=== PATIENT | male | born 1935 | race Caucasian/White ===

== ENCOUNTER 2016-08-27 06:43 | Inpatient (IN) | payer OTHER ==
[~2016-08-27] VITALS: Ht 193 cm; Wt 91.5 kg
[2016-08-27 07:21] LABS: ADD MIUA? YES; BILIRUBIN NEGATIVE; BLOOD MODERATE; COLOR YELLOW ((YELLOW)); GLUCOSE (STRIP) NEGATIVE; KETONES 5; LEUKOCYTES MODERATE; NITRITE POSITIVE; PROTEIN (STRIP) 30; SPECIFIC GRAVITY 1.013 (1.000-1.030); UROBILINOGEN 0.2 MG/DL (0.2-1.0)
[2016-08-27 07:22] LABS: EOSINOPHIL (%) 0.1 % (0-5); HEMATOCRIT 46.3 % (38.0-50.0); IMMATURE GRANULOCYTE (%) 0.5 % (0.0-0.7); IMMATURE GRANULOCYTE COUNT 0.1 K/uL; INSTRUMENT ABS NEUTROPHIL CT 12.2 K/uL; LYMPHOCYTE COUNT 0.3 K/uL (1.0-2.8); MCH 31.5 PG (29.0-34.0); MCHC 33.9 G/DL (30.0-36.0); MCV 92.8 FL (86-99); MEAN PLAT.VOLUME 10.2 uM^3 (9.0-12.4); MONOCYTE (%) 4.1 % (3-12); MONOCYTE COUNT 0.5 K/uL (0-0.8); NEUTROPHIL (%) 93.2 % (45-76); NEUTROPHIL COUNT 12.2 K/uL (1.8-6.4); PLATELET COUNT 159 K/uL (156-360); RBC DIS.WIDTH-CV 12.9 % (11.8-14.6); RBC DIS.WIDTH-SD 43.8 % (39-53); RED BLOOD COUNT 4.99 M/uL (4.00-5.50); WHITE BLOOD COUNT 13.1 K/uL (4.1-10.2)
[2016-08-27 07:37] LABS: BACTERIA 1+ /HPF; EPITHELIAL CELLS NONE SEEN /HPF; HYALINE CASTS 0-5 /LPF; MUCUS TRACE /LPF; UCUL ADDED? YES; WHITE BLOOD CELLS TNTC /HPF (0-5)
[2016-08-27 07:59] LABS: ANION GAP 11 MEQ/L (2-14); CHLORIDE 107 MEQ/L (99-109); POTASSIUM 3.6 MEQ/L (3.7-5.4); SAMPLE HEMOLYSIS CHECK 0; SAMPLE ICTERIC CHECK 0; SAMPLE LIPEMIA CHECK 0; SODIUM 141 MEQ/L (136-147); TOTAL BILIRUBIN 1.4 MG/DL (0.0-1.0)
[2016-08-27] MEDS ORDERED: ENTACAPONE200 MG PO (08:01)
[2016-08-27 08:04] LABS: ALKALINE PHOSPHATASE 41 IU/L (3-129); GFR ESTIMATE (CALCULATED) > 59 mL/min/; GLUCOSE 102 mg/dL (70-99); UREA NITROGEN (BUN) 18 mg/dL (9-23)
[2016-08-27 08:07] LABS: TROP-I INTERPRETATION NEGATIVE; TROPONIN-I 0.12 ng/mL (0.0-0.30)
[2016-08-27 11:05] VITALS: BP 137/77
[2016-08-27] MEDS ORDERED: ONE DAILY FOR1 EAC2 PO (14:29)
[2016-08-27] MEDS ORDERED: VITAMIN D-32000 UNI2 PO (14:29)
[2016-08-27] MEDS ORDERED: ECOTRIN325 MG PO (14:31)
[2016-08-27] MEDS ORDERED: SINEMET CR 50-1 EACH PO (14:32)
[2016-08-27] MEDS ORDERED: SINEMET 25-1001 EACH PO (14:34)
[2016-08-27] MEDS ORDERED: ARTANE2 MG PO (14:37)
[2016-08-27] MEDS ORDERED: ASCORBIC ACID500 M3 PO (14:38)
[2016-08-27] MEDS ORDERED: SAW PALMETTO160 MG PO (14:42)
[2016-08-27 15:19] VITALS: BP 141/83
[2016-08-27 20:03] VITALS: BP 166/91
[2016-08-28] VITALS (7 sets, daily range): BP systolic 120–166; BP diastolic 58–91
[2016-08-28 05:57] LABS: MCH 32.1 PG (29.0-34.0); MCHC 34.2 G/DL (30.0-36.0); MCV 93.9 FL (86-99); MEAN PLAT.VOLUME 10.3 uM^3 (9.0-12.4); PLATELET COUNT 130 K/uL (156-360); RBC DIS.WIDTH-CV 12.9 % (11.8-14.6); RBC DIS.WIDTH-SD 44.2 % (39-53); RED BLOOD COUNT 4.58 M/uL (4.00-5.50); WHITE BLOOD COUNT 10.4 K/uL (4.1-10.2)
[2016-08-28 07:32] LABS: ANION GAP 6 MEQ/L (2-14); CHLORIDE 109 MEQ/L (99-109); GFR ESTIMATE (CALCULATED) > 59 mL/min/; GLUCOSE 112 mg/dL (70-99); POTASSIUM 3.9 MEQ/L (3.7-5.4); SAMPLE HEMOLYSIS CHECK 0; SAMPLE ICTERIC CHECK 0; SAMPLE LIPEMIA CHECK 0; SODIUM 139 MEQ/L (136-147); UREA NITROGEN (BUN) 15 mg/dL (9-23)
[2016-08-28 09:09] LABS: ALKALINE PHOSPHATASE 34 IU/L (3-129); DIRECT BILIRUBIN 0.2 mg/dL (0.0-0.3)
[2016-08-28 09:10] LABS: TOTAL BILIRUBIN 1.1 MG/DL (0.0-1.0)
[2016-08-28 09:35] LABS: TROP-I INTERPRETATION NEGATIVE
[2016-08-29 00:12] VITALS: BP 149/88
[2016-08-29 03:51] VITALS: BP 155/94
[2016-08-29 06:16] LABS: HEMATOCRIT 43.3 % (38.0-50.0); MCH 31.8 PG (29.0-34.0); MCHC 34.6 G/DL (30.0-36.0); MCV 91.7 FL (86-99); MEAN PLAT.VOLUME 9.9 uM^3 (9.0-12.4); PLATELET COUNT 137 K/uL (156-360); RBC DIS.WIDTH-CV 12.4 % (11.8-14.6); RED BLOOD COUNT 4.72 M/uL (4.00-5.50); WHITE BLOOD COUNT 6.8 K/uL (4.1-10.2)
[2016-08-29 06:39] LABS: ALKALINE PHOSPHATASE 33 IU/L (3-129); ANION GAP 9 MEQ/L (2-14); CHLORIDE 105 MEQ/L (99-109); GFR ESTIMATE (CALCULATED) > 59 mL/min/; GLUCOSE 105 mg/dL (70-99); POTASSIUM 3.6 MEQ/L (3.7-5.4); SAMPLE HEMOLYSIS CHECK 0; SAMPLE ICTERIC CHECK 0; SAMPLE LIPEMIA CHECK 0; SODIUM 137 MEQ/L (136-147); UREA NITROGEN (BUN) 11 mg/dL (9-23)
[2016-08-29 06:43] LABS: TOTAL BILIRUBIN 0.8 MG/DL (0.0-1.0)
[2016-08-29 07:33] VITALS: BP 170/91
[2016-08-29] MEDS ORDERED: TYLENOL EXTRA500 MG PO (10:47)
== END 2016-08-29 11:46 | disposition home health service (06) | DRG 689 ==
LOC: EME → EDBD 06:43 → EME 06:43 → EDOF 08:57 → 5SOUTH 08:57
PROVIDERS: Emergency Medicine; Internal Medicine; Physician Assistant Medical
DX: N30.01 Acute cystitis with hematuria (principal); G93.40 Encephalopathy, unspecified; E86.0 Dehydration; S09.90XA Unspecified injury of head, initial encounter; S22.39XA Fracture of one rib, unspecified side, initial encounter for closed fracture; G20 Parkinson's disease; W01.0XXA Fall on same level from slipping, tripping and stumbling without subsequent striking against object, initial encounter; R17 Unspecified jaundice; Z91.81 History of falling
CPT/HCPCS: 70450; 71020; 71100; 80048; 80053; 80076; 81003; 83605; 84484; 85025; 85027; 87040; 87077; 87086; 87186; 93005; 99281; 99285; J1650; J1956; J7040; S0028

== ENCOUNTER 2016-09-02 03:24 | Inpatient (IN) | payer OTHER ==
[~2016-09-02] VITALS: Ht 177.8 cm; Wt 91.9 kg
[~2016-09-02 03:24] MED LIST: ARTANE2 MG PO; ASCORBIC ACID500 M3 PO; ECOTRIN325 MG PO; ENTACAPONE200 MG PO; ONE DAILY FOR1 EAC2 PO; SAW PALMETTO160 MG PO; SINEMET 25-1001 EACH PO; SINEMET CR 50-1 EACH PO; TYLENOL EXTRA500 MG PO; VITAMIN D-32000 UNI2 PO
[2016-09-02 04:24] LABS: ADD MIUA? YES; BILIRUBIN NEGATIVE; BLOOD NEGATIVE; COLOR AMBER ((YELLOW)); GLUCOSE (STRIP) NEGATIVE; KETONES 5; LEUKOCYTES NEGATIVE; NITRITE NEGATIVE; PROTEIN (STRIP) 30; SPECIFIC GRAVITY 1.013 (1.000-1.030); UROBILINOGEN 0.2 MG/DL (0.2-1.0)
[2016-09-02 04:39] LABS: BACTERIA NONE SEEN /HPF; EPITHELIAL CELLS NONE SEEN /HPF; MUCUS TRACE /LPF; RED BLOOD CELLS 0-5 /HPF (0-5); UCUL ADDED? NO; WHITE BLOOD CELLS 0-5 /HPF (0-5)
[2016-09-02 04:49] LABS: EOSINOPHIL (%) 0.1 % (0-5); HEMATOCRIT 43.9 % (38.0-50.0); IMMATURE GRANULOCYTE (%) 0.7 % (0.0-0.7); IMMATURE GRANULOCYTE COUNT 0.1 K/uL; INSTRUMENT ABS NEUTROPHIL CT 11.8 K/uL; LYMPHOCYTE COUNT 0.6 K/uL (1.0-2.8); MCH 31.2 PG (29.0-34.0); MCHC 33.9 G/DL (30.0-36.0); MCV 91.8 FL (86-99); MEAN PLAT.VOLUME 9.5 uM^3 (9.0-12.4); MONOCYTE (%) 9.1 % (3-12); MONOCYTE COUNT 1.3 K/uL (0-0.8); NEUTROPHIL (%) 85.9 % (45-76); NEUTROPHIL COUNT 11.8 K/uL (1.8-6.4); PLATELET COUNT 161 K/uL (156-360); RBC DIS.WIDTH-CV 12.5 % (11.8-14.6); RBC DIS.WIDTH-SD 42.7 % (39-53); RED BLOOD COUNT 4.78 M/uL (4.00-5.50); WHITE BLOOD COUNT 13.8 K/uL (4.1-10.2)
[2016-09-02 05:01] LABS: CHLORIDE 105 mEq/L (99-109); SODIUM 139 mEq/L (136-147)
[2016-09-02 05:04] LABS: ANION GAP 10 MEQ/L (2-14)
[2016-09-02 05:06] LABS: GFR ESTIMATE (CALCULATED) > 59 mL/min/
[2016-09-02 05:07] LABS: UREA NITROGEN (BUN) 15 mg/dL (9-23)
[2016-09-02 05:51] LABS: POINT-OF-CARE METER ID UU14100415
[2016-09-02 06:06] LABS: GLUCOSE 131 mg/dL (70-99)
[2016-09-02 15:24] VITALS: BP 161/85
[2016-09-03 00:16] VITALS: BP 135/76
[2016-09-03 03:59] VITALS: BP 122/73
[2016-09-03 06:38] LABS: HEMATOCRIT 41.8 % (38.0-50.0); MCH 31.1 PG (29.0-34.0); MCHC 33.3 G/DL (30.0-36.0); MCV 93.5 FL (86-99); MEAN PLAT.VOLUME 9.6 uM^3 (9.0-12.4); PLATELET COUNT 161 K/uL (156-360); RBC DIS.WIDTH-CV 12.7 % (11.8-14.6); RBC DIS.WIDTH-SD 43.7 % (39-53); RED BLOOD COUNT 4.47 M/uL (4.00-5.50); WHITE BLOOD COUNT 14.3 K/uL (4.1-10.2)
[2016-09-03 07:04] LABS: ANION GAP 7 MEQ/L (2-14); CHLORIDE 105 MEQ/L (99-109); GFR ESTIMATE (CALCULATED) > 59 mL/min/; GLUCOSE 102 mg/dL (70-99); POTASSIUM 3.9 MEQ/L (3.7-5.4); SAMPLE HEMOLYSIS CHECK 0; SAMPLE ICTERIC CHECK 0; SAMPLE LIPEMIA CHECK 0; SODIUM 140 MEQ/L (136-147); UREA NITROGEN (BUN) 14 mg/dL (9-23)
[2016-09-03 08:05] VITALS: BP 145/79
[2016-09-03 16:22] VITALS: BP 156/76
[2016-09-03 23:42] VITALS: BP 168/79
[2016-09-04 06:37] LABS: HEMATOCRIT 43.4 % (38.0-50.0); MCH 30.9 PG (29.0-34.0); MCHC 33.6 G/DL (30.0-36.0); MCV 91.8 FL (86-99); MEAN PLAT.VOLUME 9.4 uM^3 (9.0-12.4); PLATELET COUNT 209 K/uL (156-360); RBC DIS.WIDTH-CV 12.3 % (11.8-14.6); RBC DIS.WIDTH-SD 42.2 % (39-53); RED BLOOD COUNT 4.73 M/uL (4.00-5.50); WHITE BLOOD COUNT 11.4 K/uL (4.1-10.2)
[2016-09-04 06:59] LABS: ANION GAP 9 MEQ/L (2-14); CHLORIDE 104 MEQ/L (99-109); GFR ESTIMATE (CALCULATED) > 59 mL/min/; GLUCOSE 85 mg/dL (70-99); POTASSIUM 3.5 MEQ/L (3.7-5.4); SAMPLE HEMOLYSIS CHECK 0; SAMPLE ICTERIC CHECK 0; SAMPLE LIPEMIA CHECK 0; SODIUM 139 MEQ/L (136-147); UREA NITROGEN (BUN) 11 mg/dL (9-23)
[2016-09-04 07:57] VITALS: BP 165/90
[2016-09-04 10:48] VITALS: BP 170/92
[2016-09-04 16:50] VITALS: BP 133/73
[2016-09-04 22:59] LABS: ADD MIUA? YES; BILIRUBIN NEGATIVE; BLOOD LARGE; GLUCOSE (STRIP) NEGATIVE; KETONES 5; LEUKOCYTES NEGATIVE; NITRITE NEGATIVE; PROTEIN (STRIP) 30; SPECIFIC GRAVITY 1.017 (1.000-1.030); UROBILINOGEN 0.2 MG/DL (0.2-1.0)
[2016-09-04 23:03] LABS: COLOR DK YELLOW ((YELLOW))
[2016-09-04 23:25] LABS: BACTERIA NONE SEEN /HPF; CASTS PRESENT /LPF; EPITHELIAL CELLS NONE SEEN /HPF; MUCUS 1+ /LPF; RED BLOOD CELLS TNTC /HPF (0-5); UCUL ADDED? NO; WHITE BLOOD CELLS NONE SEEN /HPF (0-5)
[2016-09-04 23:26] LABS: HYALINE CASTS 0-5 /LPF
[2016-09-04 23:56] VITALS: BP 120/77
[2016-09-05 06:25] LABS: HEMATOCRIT 41.4 % (38.0-50.0); MCH 31.5 PG (29.0-34.0); MCHC 34.3 G/DL (30.0-36.0); MCV 91.8 FL (86-99); MEAN PLAT.VOLUME 9.2 uM^3 (9.0-12.4); PLATELET COUNT 250 K/uL (156-360); RBC DIS.WIDTH-CV 12.6 % (11.8-14.6); RBC DIS.WIDTH-SD 42.9 % (39-53); RED BLOOD COUNT 4.51 M/uL (4.00-5.50); WHITE BLOOD COUNT 8.2 K/uL (4.1-10.2)
[2016-09-05 06:54] LABS: ANION GAP 7 MEQ/L (2-14); CHLORIDE 106 MEQ/L (99-109); GFR ESTIMATE (CALCULATED) > 59 mL/min/; GLUCOSE 103 mg/dL (70-99); POTASSIUM 3.8 MEQ/L (3.7-5.4); SAMPLE HEMOLYSIS CHECK 0; SAMPLE ICTERIC CHECK 0; SAMPLE LIPEMIA CHECK 0; SODIUM 140 MEQ/L (136-147); UREA NITROGEN (BUN) 13 mg/dL (9-23)
[2016-09-05 08:33] VITALS: BP 164/96
[2016-09-05 16:10] VITALS: BP 147/78
[2016-09-06 00:25] VITALS: BP 153/81
[2016-09-06 07:49] VITALS: BP 149/93
[2016-09-06] MEDS ORDERED: AMANTADINE100 MG PO (10:17)
[2016-09-06] MEDS ORDERED: AMLODIPINE BESYL5 MG PO (10:17)
[2016-09-06] MEDS ORDERED: BACTRIM,SEPT1 TABLET PO (10:17)
[2016-09-06] MEDS ORDERED: TAMSULOSIN HCL0.4 MG PO (10:17)
[2016-09-06 11:20] VITALS: BP 129/73
[2016-09-06 11:28] LABS: HEMATOCRIT 45.1 % (38.0-50.0); MCH 30.5 PG (29.0-34.0); MCV 92.2 FL (86-99); MEAN PLAT.VOLUME 9.1 uM^3 (9.0-12.4); PLATELET COUNT 324 K/uL (156-360); RBC DIS.WIDTH-CV 12.7 % (11.8-14.6); RBC DIS.WIDTH-SD 43.4 % (39-53); RED BLOOD COUNT 4.89 M/uL (4.00-5.50); WHITE BLOOD COUNT 9.9 K/uL (4.1-10.2)
== END 2016-09-06 14:52 | disposition home health service (06) | DRG 57 ==
LOC: EME 03:24 → 3EAST 08:37 → 5WEST 08:37 → EDOF 11:44 → 3EAST 12:37
PROVIDERS: Emergency Medicine; Hospitalist; Internal Medicine
DX: G20 Parkinson's disease (principal); I27.2 Other secondary pulmonary hypertension; N39.0 Urinary tract infection, site not specified; I07.1 Rheumatic tricuspid insufficiency; G45.8 Other transient cerebral ischemic attacks and related syndromes; R56.9 Unspecified convulsions; E86.0 Dehydration; K64.8 Other hemorrhoids; N40.1 Benign prostatic hyperplasia with lower urinary tract symptoms; R33.8 Other retention of urine; I45.4 Nonspecific intraventricular block; R31.9 Hematuria, unspecified; D72.829 Elevated white blood cell count, unspecified; Z87.440 Personal history of urinary (tract) infections; Z74.09 Other reduced mobility; N28.1 Cyst of kidney, acquired; R97.20 Elevated prostate specific antigen [PSA]; K59.00 Constipation, unspecified; Z91.81 History of falling; W19.XXXA Unspecified fall, initial encounter; M25.512 Pain in left shoulder; R10.2 Pelvic and perineal pain; R20.0 Anesthesia of skin
CPT/HCPCS: 70450; 70551; 71010; 73030; 76770; 80048; 81003; 82948; 83605; 85025; 85027; 87040; 87086; 93005; 93306; 97530 GP; 99281; 99285; G0103; G0378; G8978 CL; G8979 CJ; G9033; J1650; J7030